=== PATIENT | female | born 1945 | race Caucasian/White ===

== ENCOUNTER → 2017-11-11 10:20 | Outpatient (CLI) | payer MEDICARE ==
--- NOTE | ~2017-11-11 | EC ---
PATIENT:RACIEL LANE DATE OF SERVICE: 11/11/17 SEX: F MEDICAL RECORD: [id number] DATE OF : 47 LOCATION:D[facility] AGE OF PATIENT: 72 ADMISSION DATE: 11/11/17 REFERRING PHYSICIAN: INTERPRETING PHYSICIAN: HELENA BEE MD ECHOCARDIOGRAM REPORT ECHO CHARGES 4 ECHO COMPLETE CLINICAL DIAGNOSIS: ATRIAL FLUTTER , HTN ECHOCARDIOGRAPHIC MEASUREMENTS (adult normal given) AC root (d.<3.7cm) 3.1 cm LV Septum d (<1.2 cm> 1.4 cm Valve Excursion 1.3 cm LV Septum (systole) 1.8 cm Left Atria (s.<4.0cm> 3.8 cm LVPW d(<1.2cm) 1.6 cm RV (d.<2.3cm) 3.6 cm LVPW (sytole) 1.7 cm LV diastole(<5.6CM) 4.7 cm MV E-F(>70mm/sec) cm LV systole 3.1 cm LVOT Diameter 1.7 cm MV exc.(>10mm) 1.7 cm Est.ejection fraction (50-75%) % Pericardial Effusion N DOPPLER: LVIT cm/sec A 56.0 cm/sec E 109 cm/sec LA cm/sec RVSP 57 mmHg LVOT 98 cm/sec AOP1/2T 337 m/s Asc. Ao 183 cm/sec RVOT 68 cm/sec RA cm/sec PA 100 cm/sec AV Gradient Peak 13.36mmHg AV Mean 6.45 mmHg AV Area 1.4 cm MV Gradient Peak 8.12 mmHg MV Mean 2.56 mmHg MV Area cm COMMENTS: Table Tender: Ngoc DEWITT Hr Manager: 4 Dr. Bee TAPE# PACS DATE OF SERVICE: 11/11/2017 PROCEDURE: Transthoracic echocardiogram. FINDINGS: 1. The patient has [id number] left ventricular hypertrophy with inflow characteristics that are normal. Ejection fraction of 65% to 70%. 2. The left atrium is upper limits of normal to mildly dilated between 3.8 to 4.0 cm. 3. The aortic valve shown to be normal structure with mild sclerosis and mild ECHOCARDIOGRAM REPORT [id number] [address]ACI[address] L[address] aortic insufficiency. No evidence of aortic stenosis. 4. The mitral valve has mild mitral regurgitation. 5. The tricuspid valve has myxv-sx-[id number] tricuspid regurgitation. The RVSP appears to be normal to mildly elevated 30 to 35 mmHg. 6. 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 7. The right atrium is mildly dilated. 8. The right ventricle is mildly dilated and has normal function. CONCLUSIONS: The patient has evidence of hypertensive heart disease with mildly elevated pulmonary pressures as well as evidence of moderate tricuspid regurgitation. TRANSINT:[id number] Voice Confirmation ID: [id number] DOCUMENT ID: [id number] HELENA BEE MD at 1522 CC: [id number] DICTATION DATE: 11/12/17 0957 [employer]PERVIS[employer] REACTOR FUELING: 11/12/17 1245 [facility] 11/11/17 [id number] [place] [address]
== END | disposition home or self-care (01) ==
LOC: D.ECHO 10:20
DX: I48.92 Unspecified atrial flutter (principal); I10 Essential (primary) hypertension